=== PATIENT | female | born 1975 | race Caucasian/White ===

== ENCOUNTER 2021-05-19 20:27 | Emergency (ER) | payer SELFPAY ==
[2021-05-19 20:34] VITALS: BP 126/88; PULSE 117; RESP 18; TEMP 36.5; O2SAT 97
--- NOTE | 2021-05-19 20:57 | ED.DENTAL ---
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 Got worse today. Patient reports some pus coming out of the gum at that area, denies any fever, chills, nausea, vomiting, headache, difficulty swallowing or breathing. Review of Systems Review of Systems: CONSTITUTIONAL: Denies fever, chills, or sweats. EYES: Denies visual changes, redness, or discharge. ENT: Dental pain for the last 3 months CARDIOVASCULAR: Denies chest pain, palpitations, or edema. RESPIRATORY: Denies cough or dyspnea. GASTROINTESTINAL: Denies abdominal pain, nausea, vomiting, or diarrhea. GENITOURINARY: Denies dysuria or hematuria. SKIN: Denies rash or itching. MUSCULOSKELETAL: Denies back pain, joint pain, or myalgia. NEUROLOGIC: Denies headache, numbness, or weakness. PSYCHIATRIC: Denies anxiety or depression. Exam Narrative: General appearance: Well-developed, well-nourished Skin: Normal color Head: Normocephalic, nontraumatic Eyes: Clear conjunctiva ENT: Oropharynx normal, ears normal, nose normal Neck: Supple, nontender Chest and respiratory: Airway patent, no respiratory distress, no accessory muscle use Heart: Regular rate/rhythm Abdomen: Soft, nontender, no organomegaly, quiet bowel sounds Vascular: Normal peripheral pulses, normal capillary refill. Musculoskeletal: Normal range of motion, nontender back Neurologic: Alert and oriented ?3, WIRE [place]USHER is normal as tested, no gross motor deficit HENMT: Teeth image: 1. Extensive dental caries, filling, no pus discharge, no abscess formation 2. Course Course Emergency Course: Stable Vital Signs Vital signs: Vital Signs Temperature 36.5 C 05/19/21 20:34 Pulse Rate 117 H 05/19/21 20:34 Respiratory Rate 18 05/19/21 20:34 Blood Pressure 126/88 05/19/21 20:34 Pulse Oximetry 97 05/19/21 20:34 Temperature 36.5 C 05/19/21 20:34 Pulse Rate 117 H 05/19/21 20:34 Respiratory Rate 18 05/19/21 20:34 Blood Pressure 126/88 05/19/21 20:34 Pulse Oximetry 97 05/19/21 20:34 MDM - Dental/Oral MDM Narrative Medical decision making narrative: Dental caries Critical Care Time Critical Care Time Critical Care Time: No Discharge Plan Discharge Clinical Impression: Toothache, Dental caries Patient Disposition: Home, Self-Care Condition: Stable Instructions: Antibiotic Form, Toothache (ED) Additional Instructions: Return if symptoms are worsening , call your family physician for appointment, take Tylenol as as needed for aches and pain, continue home medications. Prescriptions: New penicillin V potassium 500 mg tablet 500 mg PO Q6H Qty: 40 RF: 0 ibuprofen [IBU] 800 mg tablet 800 mg PO TID Qty: 20 RF: 0 Follow-up/Referrals: Juan M Hancock DMD [Physician] - 05/21/21 PHYSICIAN,FABRIC SEPARATOR OPERATOR [Primary Care Provider] - Stand Alone Forms: Work/School Release IP
[2021-05-19] MEDS: ACETAMINOPHEN 325 MG TABLET 650 MG PO (21:16)
[2021-05-19] MEDS: IBUPROFEN 400 MG TABLET 800 MG PO (21:16)
== END 2021-05-19 21:19 | disposition home or self-care (01) ==
PROVIDERS: Emergency Provider Emergency Medicine
DX: K02.9 Dental caries, unspecified (principal)
CPT/HCPCS: 99283; A9270